=== PATIENT | male | born 1960 | race Caucasian/White ===

== ENCOUNTER → 2017-08-23 | Outpatient (CLI) | payer OTHER ==
[~2017-08-23] MED LIST: ALBU1NEB10 INH; ALBUAER2 INH; ALPR-411 PO; ATOR-24 PO; CARB200T PO; CLOP1TAB15 PO; FLUT110A INH; FLUV100T12 PO; FRS/40 PO; FURO40TA3 PO; LSN5 PO; METO50TA16 PO; NTRGSL/4 UT; OPTIRAY 320 IV PRN; SPIR25TA PO; WARF5TAB90 PO
--- NOTE | 2017-08-23 09:15 | DIAGNOSTIC IMAGING REPORT ---
CHEST CT WITH CONTRAST CT DOSE: 1109.24 mGy.cm HISTORY: Follow-up ABNORMAL CT LUNG SCAN TECHNIQUE: Multiaxial CT images of the chest were performed following the intravenous administration of contrast. A dose lowering technique was utilized adhering to the principles of ALARA. COMPARISON: Chest CTA 03/20/2015. FINDINGS: The central airways are patent. No pleural effusions. No pneumothorax. Punctate calcified granuloma within the base of the right middle lobe. Stable mild elevation the right hemidiaphragm. A few small focal peripheral groundglass airspace opacities seen within the right lower lobe posteriorly and left upper lobe anteriorly have improved. No new focal lung consolidations. Linear scarlike density along the right minor fissure. Focal calcification along the right hemidiaphragm. Hepatic steatosis. A 2.5 cm hypodense lesion within the left hepatic lobe. This favors a hemangioma given the discontinuous peripheral nodular enhancement. Cholecystectomy. The spleen and visualized adrenal glands are unremarkable. The heart is normal in size. No mediastinal or hilar lymphadenopathy. The central pulmonary arteries are patent. Normal caliber thoracic aorta. Mild thickening of the distal esophagus, unchanged. Coronary artery calcifications. IMPRESSION: 1. Small focal peripheral groundglass airspace opacities seen within the right lower lobe posteriorly and left upper lobe anteriorly which have improved. These could represent areas of scarring or mild inflammatory/infectious change. 2. Mild thickening of the distal esophagus, unchanged. 3. A 2.5 cm hypodense lesion within the left hepatic lobe. This favors a hemangioma given the discontinuous peripheral nodular enhancement. Electronically signed by: Lorenzo Shelton M.D. 08/23/2017 9:13 AM Dictated Date/Time: 08/23/2017 9:05 AM
== END ==
LOC: C.CTS 08:32
PROVIDERS: ATTEND Internal Medicine Critical Care Medicine
DX: R06.02 Shortness of breath (principal); R91.8 Other nonspecific abnormal finding of lung field